=== PATIENT | male | born 1995 | race Caucasian/White ===

== ENCOUNTER 2017-06-11 20:16 | Emergency (ER) | payer OTHER, BC, SELFPAY ==
[2017-06-11 20:57] VITALS: BP 119/64; PULSE 142; RESP 20; TEMP 37.9; O2SAT 97; BMI 22.4
[2017-06-11 21:34] LABS: UTC Influenza A Antigen Negative (Negative); UTC Influenza B Antigen Positive (Negative)
--- NOTE | 2017-06-11 21:39 | HMH.EDUTC ---
[facility] Disposition Clinical Impression: Influenza B Disposition: Home, Self-Care Condition on Discharge: Good Instructions: DI for Influenza -- Adult, DI for Fever (Symptom) -- Adult Additional Instructions: * Too late to start tamiflu. Most effective when started within 48 hours of symptoms onset. * Lots of rest * Increase fluids, water, gatorade, powerade, pedialyte if /toddler/child * Monitor Temp. Tylenol every 4 hours as needed no more then 5 times a day or 4000mg in 24 hours and/or ibuprofen every 6 hours as needed no more then 3200mg in 24 hours (as long as your primary care doctor has told you that it is ok to take both) for fever/aches/pain. ER if fever no less than 101 despite tylenol and Ibuprofen * OTC cold/flu/sinus medication is ok but pick one. Do not take multiple different ones as they have similar ingredients and you can overdose on cold medication. If robitussin is helping, stick with it. * You (or your child) are contagious until no fever, aches, chills x 24 hours without medication for symptoms. Follow up with primary care or return to [facility] for new or worsening symptoms, improvement followed by suddenly feeling worse OR no noticeable improvement over the next 48-72 hours. 911 for difficulty breathing Forms: Work/School Release Time of Disposition: 21:42 Medical Decision Making Vital Signs: 06/11/17 20:57 06/11/17 21:46 Temperature 100.3 F H 98.4 F Temperature Source Oral Pulse Rate 77 Pulse Rate [Left Brachial] 142 H Respiratory Rate 20 20 Blood Pressure 121/76 Blood Pressure [Left Arm] 119/64 Blood Pressure Mean [Left Arm] 82 Blood Pressure Source [Left Arm] Automatic Cuff Blood Pressure Position [Left Arm] Sitting 02 Sat by Pulse Oximetry 97 Oxygen Delivery Method Room Air Oxygen Flow Rate (LPM) 99 - Lab Data Lab results reviewed: Yes: I reviewed the patient's lab results. Lab Results 06/11/17 21:31: Influenza Type A Ag Negative, Influenza Type B Ag Positive A - Estevan Inquiry Pt receiving controlled substance: No [facility] HPI - General Stated complaint: Fever, Congestion Time Seen by Provider: 06/11/17 21:25 Mode of Arrival: Ambulatory Source of Information: Patient Limitations: No Limitations Description of Symptoms (Recalled from Triage Doc. by RN): C/O FEVER, RUNNY NOSE, HEAD CONGESTION, COUGH X3 DAYS HEENT Symptoms (Recalled from RN notes): Yes (HEAD CONGESTION, RUNNY NOSE) Resp Symptoms (Recalled from RN notes): Yes (COUGH) Skin Symptoms (Recalled from RN notes): No MS Symptoms (Recalled from RN notes): No Functional Status (Recalled from RN notes): N/A - History of Present Illness Provider Complaint: c/o fever, cough, runny nose, chills x 3 days. With no fever, feels ok. Has been going to work. Tylenol and ibuprofen helping. Fever this afternoon 103.8. Ibuprofen at 6pm when temp taken and tylenol at 7:45. Both help. I feel good now . Multiple people at work have had similiar symptoms. - Related Data Allergies Allergy/AdvReac Type Severity Reaction Status Date / Time NO KNOWN ALLERGIES Allergy Uncoded 04/21/17 14:58 - Worker's Comp Is this a Worker's Comp case?: No [facility] History I have reviewed the patient's past medical history: Yes (denies) Medical History: Denies:: Cancer, Diabetes Mellitus Type 1, Diabetes Mellitus Type 2, Hypertension, MRSA Other Surgeries: Yes: Other (pyloric stenosis) Amputation: No Fractures: No - *Social History Smoking Status: Never smoker Alcohol Intake: never - Psychiatric History Expresses thoughts of harming self/others: None Suicide Plan Description: No Plan ROS Obtained: Yes Systems reviewed as appropriate & no additional complaints - Constitutional Constitutional: Reports as per HPI, Denies body ache, Denies daytime sleepiness, Denies difficulty sleeping, Denies poor appetite (eating and drinking great maybe more ) - Eyes Eyes: Denies eye discharge, Denies eye pain - ENT Ears, Nos
--- NOTE | 2017-06-11 21:42 | ED_ITS ---
[facility] [place] Disposition Clinical Impression: Influenza B Disposition: Home, Self-Care Condition on Discharge: Good Instructions: DI for Influenza -- Adult, DI for Fever (Symptom) -- Adult Additional Instructions: * Too late to start tamiflu. Most effective when started within 48 hours of symptoms onset. * Lots of rest * Increase fluids, water, gatorade, powerade, pedialyte if /toddler/child * Monitor Temp. Tylenol every 4 hours as needed no more then 5 times a day or 4000mg in 24 hours and/or ibuprofen every 6 hours as needed no more then 3200mg in 24 hours (as long as your primary care doctor has told you that it is ok to take both) for fever/aches/pain. ER if fever no less than 101 despite tylenol and Ibuprofen * OTC cold/flu/sinus medication is ok but pick one. Do not take multiple different ones as they have similar ingredients and you can overdose on cold medication. If robitussin is helping, stick with it. * You (or your child) are contagious until no fever, aches, chills x 24 hours without medication for symptoms. Follow up with primary care or return to [facility]MM[facility] for new or worsening symptoms, improvement followed by suddenly feeling worse OR no noticeable improvement over the next 48-72 hours. 911 for difficulty breathing Forms: Work/School Release Time of Disposition: 21:42 Medical Decision Making Vital Signs: 06/11/17 20:57 06/11/17 21:46 Temperature 100.3 F H 98.4 F Temperature Source Oral Pulse Rate 77 Pulse Rate [Left Brachial] 142 H Respiratory Rate 20 20 Blood Pressure 121/76 Blood Pressure [Left Arm] 119/64 Blood Pressure Mean [Left Arm] 82 Blood Pressure Source [Left Arm] Automatic Cuff Blood Pressure Position [Left Arm] Sitting 02 Sat by Pulse Oximetry 97 Oxygen Delivery Method Room Air Oxygen Flow Rate (LPM) 99 - Lab Data Lab results reviewed: Yes: I reviewed the patient's lab results. Lab Results 06/11/17 21:31: Influenza Type A Ag Negative, Influenza Type B Ag Positive A - Estevan Inquiry Pt receiving controlled substance: No [facility] HPI - General Stated complaint: Fever, Congestion Time Seen by Provider: 06/11/17 21:25 Mode of Arrival: Ambulatory Source of Information: Patient Limitations: No Limitations Description of Symptoms (Recalled from Triage Doc. by RN): C/O FEVER, RUNNY NOSE , HEAD CONGESTION, COUGH X3 DAYS HEENT Symptoms (Recalled from RN notes): Yes (HEAD CONGESTION, RUNNY NOSE) Resp Symptoms (Recalled from RN notes): Yes (COUGH) Skin Symptoms (Recalled from RN notes): No MS Symptoms (Recalled from RN notes): No Functional Status (Recalled from RN notes): N/A - History of Present Illness Provider Complaint: c/o fever, cough, runny nose, chills x 3 days. With no fever , feels ok. Has been going to work. Tylenol and ibuprofen helping. Fever this afternoon 103.8. Ibuprofen at 6pm when temp taken and tylenol at 7:45. Both help. I feel good now . Multiple people at work have had similiar symptoms. - Related Data Allergies Allergy/AdvReac Type Severity Reaction Status Date / Time NO KNOWN ALLERGIES Allergy Uncoded 04/21/17 14:58 - Worker's Comp Is this a Worker's Comp case?: No [facility] History I have reviewed the patient's past medical history: Yes (denies) Medical History: Denies:: Cancer, Diabetes Mellitus Type 1, Diabetes Mellitus Type 2, Hypertension, MRSA Other Surgeries: Yes: Other (pyloric stenosis) Amputatio
[2017-06-11 21:46] VITALS: BP 121/76; PULSE 77; RESP 20; TEMP 36.9
== END 2017-06-11 21:47 | disposition home or self-care (01) ==
PROVIDERS: Emergency Provider Nurse Practitioner Family; Family Provider Family Medicine
DX: J11.1 Influenza due to unidentified influenza virus with other respiratory manifestations (principal)
CPT/HCPCS: 87804; 99201

== ENCOUNTER 2022-10-12 20:49 | Emergency (ER) | payer BC, SELFPAY ==
[2022-10-12 20:50] VITALS: BP 147/97; PULSE 90; RESP 18; TEMP 36.5; O2SAT 98; BMI 25.7
--- NOTE | 2022-10-12 20:58 | PC.NURSE ---
Pt wound cleaned with sterile water and hibiclens
--- NOTE | 2022-10-12 21:16 | PC.NURSE ---
Dr. Victoria at BS to suture
[2022-10-12 21:22] VITALS: BP 140/90; PULSE 85; RESP 17; TEMP 36.7; O2SAT 98
--- NOTE | 2022-10-12 21:22 | HMH.EDWNDL ---
Discharge Plan Disposition Chief Complaint: Wound/Laceration Referrals Follow up/Referrals: Margaret Marr MD [Primary Care Provider] - See instructions Clinical Impressions Clinical Impression: Laceration Instructions Patient Instructions: DI for Laceration Repair Discharge ED Provider: Julien (ED)Lewis Wound/Laceration HPI General Chief Complaint: Wound/Laceration Stated Complaint: AO 10/12, right pointer finger knuckle lac Time Seen by Provider: 10/12/22 21:15 Mode of Arrival: Ambulatory Source of Information: Patient, Spouse and Medical Record Limitations: No Limitations Description of Symptoms (Recalled from ER Triage Doc. by RN): pt cut right index finger knuckle on a dogfood can lid. the pt has controlled the bleeding. the laceration is aprox slightly over a cm in length. History of Present Illness HPI narrative: lac dorsum of rt hand Onset (ago): hour(s) Extremity Location: Right: hand Place: home Patient tetanus UTD: No Context: accidental Related Data Allergies Allergy/AdvReac Type Severity Reaction Status Date / Time NO KNOWN ALLERGIES Allergy Uncoded 04/21/17 14:58 [facility] Disclaimer: The information contained in this section may have been updated after the patient was seen, as this information can be updated by other users. Social History Smoking Status: Never smoker alcohol intake: never current occupational status: employed Travel in the last 8 weeks: None ROS Obtained: Yes All systems reviewed & no additional complaints except as documented Physical Exam General General appearance: alert Head Head exam: normocephalic Eye Eye exam: Present PERRL and EOMI ENT ENT exam: Present mucous membranes moist Neck Neck exam: Present trachea midline Respiratory Respiratory exam: Absent respiratory distress Cardiovascular Cardiovascular exam: Present regular rate Extremities Exam Extremities exam: Present full ROM Neurological Exam Neurological exam: Present alert, oriented X3 and CN II-XII intact Psychiatric Psychiatric exam: Present normal affect Skin Skin exam: Present other (1 cm rt hand lac w/o fb and neurovascular and tendon ok ); Absent rash Medical Decision Making Medical Records Medical records reviewed: Yes I reviewed the patient's medical records. Estevan Inquiry Pt receiving controlled substance: No Vital Signs: 10/12/22 20:50 Temperature 97.7 F Temperature Source Oral Pulse Rate [Left] 90 Respiratory Rate 18 Blood Pressure [Left Arm] 147/97 H Blood Pressure Mean [Left Arm] 113 02 Sat by Pulse Oximetry 98 Oxygen Delivery Method Room Air Lab Data Lab results reviewed: Yes I reviewed the patient's lab results. Orders (Tests/Meds): ED MEDICATIONS Generic Name Dose Route Start Last Admin Trade Name Freq PRN Reason Stop Dose Admin Lidocaine HCl 10 ml 10/12/22 21:20 10/12/22 21:21 Lidocaine 1% 10ml Mdv SQ 10/12/22 21:21 10 ml ONCE ONE Administration Discontinued Medications Generic Name Dose Route Start Last Admin Trade Name Freq PRN Reason Stop Dose Admin Tetanus/Diphtheria Toxoids 0.5 ml 10/12/22 21:07 10/12/22 21:12 Tetanus-Diphth Toxoid, Adult 0.5ml Syr IM 10/12/22 21:08 0.5 ml .ONCE ONE Administration Medical Decision Narrative: laceration repaired and no indicatio for xray and suture out 10 days Procedures Laceration Laceration 1: Site: hand Side (If applicable): right Size (cm): 1 Description: linear Depth: involves subcutaneous layer Local Anesthetic: lidocaine 1% Amount of anesthesia used (mL): 2.5 Pre-repair: deep structures intact Skin layer closed with: nylon and Dermabond Size (cm): 4-0 Number of sutures: 3 Technique: simple, interrupted Critical Care Time Critical Care Time Critical Care Time: No Attestation: On 10/12/22, the high probability of a clinically significant, sudden or life threatening
== END 2022-10-12 21:41 | disposition home or self-care (01) ==
PROVIDERS: Emergency Provider Emergency Medicine; PCP Family Medicine
DX: S61.210A Laceration without foreign body of right index finger without damage to nail, initial encounter (principal); W26.8XXA Contact with other sharp object(s), not elsewhere classified, initial encounter; Z23 Encounter for immunization
CPT/HCPCS: 12041; 90471; 90714; 96372; 99283; 99284

== ENCOUNTER 2024-02-18 17:37 | Emergency (ER) | payer SELFPAY ==
--- NOTE | 2024-02-18 17:35 | ECG_ITS ---
APPROVED REPORT Exam: Resting ECG HR:95 bpm ECG Measurements Heart Rate 95 AXES MS 151 P 55 QRSd 94 QRS 69 QT 333 T 54 QTc 385 Conclusion SINUS RHYTHM NORMAL ECG UNCONFIRMED REPORT Electronically signed by : Bandar Blair, 02/18/2024 23:03:17
[2024-02-18 17:36] VITALS: BP 152/110; PULSE 95; RESP 13; O2SAT 99; BMI 25.7
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
[2024-02-18 18:00] VITALS: BP 140/98; PULSE 97; O2SAT 100
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
--- NOTE | 2024-02-18 18:13 | PC.NURSE ---
XR AT BEDSIDE
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
[2024-02-18] MEDS: KETOROLAC 30MG/ML VIAL 15 MG IV (18:37)
[2024-02-18 18:44] VITALS: BP 152/98; PULSE 101; RESP 18; TEMP 36.7; O2SAT 98
== END 2024-02-18 18:45 | disposition home or self-care (01) ==
PROVIDERS: Emergency Provider Student in an Organized Health Care Education/Training Program; PCP Family Medicine
DX: S80.02XA Contusion of left knee, initial encounter (principal); S70.12XA Contusion of left thigh, initial encounter; S40.022A Contusion of left upper arm, initial encounter; S40.012A Contusion of left shoulder, initial encounter; M79.602 Pain in left arm; M25.512 Pain in left shoulder; M79.652 Pain in left thigh; M25.562 Pain in left knee; V89.2XXA Person injured in unspecified motor-vehicle accident, traffic, initial encounter; Y93.89 Activity, other specified; Y92.89 Other specified places as the place of occurrence of the external cause
CPT/HCPCS: 73030; 73060; 73552; 73562; 93005; 96374; 99284; J1885

== ENCOUNTER 2024-02-22 15:52 | Emergency (ER) | payer SELFPAY ==
[2024-02-22 15:53] VITALS: BP 154/99; PULSE 95; RESP 18; TEMP 36.7; O2SAT 99; BMI 25.2
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
--- NOTE | 2024-02-22 16:43 | PC.NURSE ---
sadia bridges at bedside
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
[2024-02-22 17:00] VITALS: BP 140/85; PULSE 75; O2SAT 98
--- NOTE | 2024-02-22 17:02 | PC.NURSE ---
pt to ct
[2024-02-22] MEDS: METHOCARBAMOL 500MG TABLET 500 MG PO (17:03)
[2024-02-22] MEDS: ACETAMINOPHEN 500MG TAB 1000 MG PO (17:03)
[2024-02-22] MEDS: DEXAMETHASONE 4MG/ML 5ML MDV 10 MG IM (17:03)
[2024-02-22] MEDS: LIDOCAINE 5% TRANSDERMAL PATCH 1 EACH TP (17:03)
[2024-02-22] MEDS: diphenhydrAMINE 25MG CAPSULE 50 MG PO (17:04)
[2024-02-22 17:30] VITALS: BP 147/88; PULSE 71; O2SAT 98
[2024-02-22 18:00] VITALS: BP 149/92; PULSE 74; O2SAT 98
--- NOTE | 2024-02-22 18:06 | PC.NURSE ---
DON AT BEDSIDE TO REEVALUATE PT
[2024-02-22 18:13] VITALS: BP 149/92; PULSE 74; RESP 16; TEMP 36.6; O2SAT 98
== END 2024-02-22 18:15 | disposition home or self-care (01) ==
PROVIDERS: Emergency Provider Emergency Medicine; PCP Family Medicine
DX: R51.9 Headache, unspecified (principal); M79.10 Myalgia, unspecified site; M54.2 Cervicalgia
CPT/HCPCS: 70450; 72125; 96372; 99284; J1100